=== PATIENT | male | born 1980 | race Caucasian/White ===

== ENCOUNTER 2018-01-15 03:00 | Inpatient (IN) | payer OTHER ==
[2018-01-15] MEDS: LORAZEPAM 2 MG INJ IV ×4 (04:38→18:24)
[2018-01-15] MEDS: CHLORDIAZEPOXIDE 25 MG CAP PO ×9 (04:38→23:53)
[2018-01-15 04:39] LABS: ADD MAN DIFF? NO
[2018-01-15 04:55] LABS: BASOPHIL # 0.1 10^3/ul (0.0-0.1); BASOPHILS % 0.9 % (0.0-2.0); EOSINOPHILS # 0.2 10^3/ul (0.0-0.5); EOSINOPHILS % 2.7 % (0.0-7.0); HEMATOCRIT 42.8 % (42.0-52.0); HEMOGLOBIN 14.3 g/dl (14.0-18.0); LYMPHOCYTES % 28.5 % (15.0-51.0); MEAN CORPUSCULAR HGB CONC 33.4 g/dl (32.0-37.0); MEAN CORPUSCULAR VOLUME 89.9 fl (82.0-101.0); MEAN PLATELET VOLUME 9.6 fl (7.4-10.4); MONOCYTE # 1.3 10^3/ul (0.3-0.9); NEUTROPHIL # 3.4 10^3/ul (1.6-7.5); NEUTROPHILS % 49.5 % (39.0-77.0); PLATELET COUNT 143 10^3/UL (140-415); RED BLOOD COUNT 4.76 10^6/ul (4.70-6.10); RED CELL DISTRIBUTION WIDTH 14.6 % (11.5-14.5)
[2018-01-15 04:55] LABS: WHITE BLOOD COUNT 6.9 10^3/ul (4.8-10.8)
[2018-01-15] MEDS: DIAZEPAM 5 MG/ML SYG IV (05:40)
[2018-01-15 05:41] LABS: ACETAMINOPHEN < 10.0 ug/ml (10.0-30.0); ALANINE AMINOTRANSFERASE 149 IU/L (13-69); ALBUMIN 4.6 g/dl (3.3-4.9); ALBUMIN/GLOBULIN RATIO 1.31; ALKALINE PHOSPHATASE 87 IU/L (42-121); ANION GAP 18 (8-16); ASPARTATE AMINO TRANSFERASE 168 IU/L (15-46); BILIRUBIN,INDIRECT 0.6 mg/dl (0-1.1); BILIRUBIN,TOTAL 0.6 mg/dl (0.2-1.3); BLOOD UREA NITROGEN 13 mg/dl (7-20); CALCIUM 9.6 mg/dl (8.4-10.2); CARBON DIOXIDE 27 mmol/L (21-31); CHLORIDE 101 mmol/L (97-110); ETHANOL < 10.0 mg/dl; GLUCOSE 105 mg/dl (70-220); POTASSIUM 3.6 mmol/L (3.5-5.1); SALICYLATE < 1.0 mg/dl (5.0-30.0); SODIUM 142 mmol/L (135-144); TOTAL PROTEIN 8.1 g/dl (6.1-8.1)
[2018-01-15] MEDS ORDERED: ACETAMINOPHEN 325 MG TAB PO ×2 (07:30→10:30)
[2018-01-15] MEDS ORDERED: ONDANSETRON 4 MG INJ IV ×2 (07:30→10:30)
[2018-01-15 08:23] LABS: ADD UMIC YES; UR ASCORBIC ACID NEGATIVE (NEGATIVE); UR BACTERIA FEW /HPF (NONE SEEN); UR BILIRUBIN (Dip) NEGATIVE (NEGATIVE); UR BLOOD (Dip) 1+ mg/dL (NEGATIVE); UR CLARITY CLEAR (CLEAR); UR COLOR YELLOW (YELLOW); UR GLUCOSE (Dip) NEGATIVE (NEGATIVE); UR KETONES (Dip) NEGATIVE (NEGATIVE); UR LEUKOCYTE ESTERASE (Dip) NEGATIVE Leu/ul (NEGATIVE); UR MUCUS MODERATE /HPF (NONE SEEN); UR NITRITE (Dip) NEGATIVE (NEGATIVE); UR RBC 0 /HPF (0-5); UR SPECIFIC GRAVITY (Dip) 1.025 (1.003-1.030); UR TOTAL PROTEIN (Dip) NEGATIVE (NEGATIVE); UR UROBILINOGEN (Dip) 1+ mg/dL (NEGATIVE); UR WBC 2 /HPF (0-5)
[2018-01-15 08:46] LABS: AMPHETAMINE/METHAMPHETAMINE Negative (NEGATIVE); BARBITURATES Negative (NEGATIVE); CANNABINOIDS Negative (NEGATIVE); COCAINE Negative (NEGATIVE); OPIATES Negative (NEGATIVE)
[2018-01-15 08:50] LABS: BENZODIAZEPINES Positive (NEGATIVE)
[2018-01-15] MEDS ORDERED: NACL 0.9% 3 ML SYG IV (10:30)
[2018-01-15] MEDS ORDERED: BISACODYL 10 MG SUPP PR (10:30)
[2018-01-15] MEDS ORDERED: MAGNESIUM HYDROXIDE 30ML CUP PO (10:30)
[2018-01-15] MEDS ORDERED: ZOLPIDEM 5 MG TAB PO (10:30)
[2018-01-15 10:53] LABS: PHOSPHORUS 5.3 mg/dl (2.5-4.9)
[2018-01-15] MEDS: FOLIC ACID 1 MG TAB PO (11:04)
[2018-01-15] MEDS: MULTIVITAMINS THERAPEUTIC TAB PO (11:04)
[2018-01-15] MEDS: SOD CHLORIDE 0.9% 1,000 ML IV ×2 (11:04→20:22)
[2018-01-15] MEDS: THIAMINE 100 MG TAB PO (11:05)
[2018-01-15] MEDS: HALOPERIDOL 5 MG INJ IM (18:05)
[2018-01-15] MEDS: HALOPERIDOL 5 MG INJ IV (19:45)
[2018-01-15] MEDS ORDERED: FLUOCINONIDE 0.05% 60 GM OINT TOP (21:00)
[2018-01-16] MEDS: SOD CHLORIDE 0.9% 1,000 ML IV ×2 (02:42→05:32)
[2018-01-16] MEDS: PANTOPRAZOLE (EC) 40 MG TAB PO (05:18)
[2018-01-16] MEDS: CHLORDIAZEPOXIDE 25 MG CAP PO ×4 (05:18→23:56)
[2018-01-16 08:39] LABS: ALANINE AMINOTRANSFERASE 130 IU/L (13-69); ALBUMIN 4.1 g/dl (3.3-4.9); ALBUMIN/GLOBULIN RATIO 1.36; ALKALINE PHOSPHATASE 47 IU/L (42-121); ANION GAP 19 (8-16); ASPARTATE AMINO TRANSFERASE 108 IU/L (15-46); BILIRUBIN,INDIRECT 0.8 mg/dl (0-1.1); BILIRUBIN,TOTAL 0.8 mg/dl (0.2-1.3); BLOOD UREA NITROGEN 12 mg/dl (7-20); CALCIUM 8.8 mg/dl (8.4-10.2); CARBON DIOXIDE 22 mmol/L (21-31); CHLORIDE 105 mmol/L (97-110); CREATININE 0.72 mg/dl (0.61-1.24); GLUCOSE 101 mg/dl (70-220); MAGNESIUM 1.8 mg/dl (1.7-2.5); POTASSIUM 3.1 mmol/L (3.5-5.1); SODIUM 143 mmol/L (135-144); TOTAL PROTEIN 7.1 g/dl (6.1-8.1)
[2018-01-16] MEDS ORDERED: FLUOCINONIDE 0.05% TOP (09:00)
[2018-01-16] MEDS: MULTIVITAMINS THERAPEUTIC TAB PO (09:03)
[2018-01-16] MEDS: THIAMINE 100 MG TAB PO (09:04)
[2018-01-16] MEDS: ATENOLOL 25 MG TAB PO (09:04)
[2018-01-16] MEDS: FOLIC ACID 1 MG TAB PO (09:04)
[2018-01-16] MEDS: ESCITALOPRAM 10 MG TAB PO (09:04)
[2018-01-16] MEDS: POTASSIUM CHLORIDE (SR) 20 MEQ TAB PO (09:54)
[2018-01-16] MEDS: MAGNESIUM SULFATE 2 GM/50 ML 50 ML IVPB (09:54)
[2018-01-16] MEDS: D5-NS + KCL 40 MEQ 1,000 ML IV ×2 (11:26→21:34)
[2018-01-17] MEDS: PANTOPRAZOLE (EC) 40 MG TAB PO (05:54)
[2018-01-17] MEDS: CHLORDIAZEPOXIDE 25 MG CAP PO ×4 (05:54→23:29)
[2018-01-17] MEDS: D5-NS + KCL 40 MEQ 1,000 ML IV (07:00)
[2018-01-17 07:22] LABS: ADD MAN DIFF? NO
[2018-01-17 07:28] LABS: WHITE BLOOD COUNT 9.5 10^3/ul (4.8-10.8)
[2018-01-17 07:28] LABS: BASOPHILS % 0.4 % (0.0-2.0); EOSINOPHILS # 0.1 10^3/ul (0.0-0.5); EOSINOPHILS % 1.2 % (0.0-7.0); HEMATOCRIT 38.1 % (42.0-52.0); HEMOGLOBIN 12.3 g/dl (14.0-18.0); LYMPHOCYTES # 1.3 10^3/ul (0.8-2.9); LYMPHOCYTES % 13.8 % (15.0-51.0); MEAN CORPUSCULAR HEMOGLOBIN 30.5 pg (29.0-33.0); MEAN CORPUSCULAR HGB CONC 32.3 g/dl (32.0-37.0); MEAN CORPUSCULAR VOLUME 94.5 fl (82.0-101.0); MEAN PLATELET VOLUME 9.6 fl (7.4-10.4); MONOCYTE # 1.3 10^3/ul (0.3-0.9); MONOCYTES % 13.3 % (0.0-11.0); NEUTROPHIL # 6.7 10^3/ul (1.6-7.5); NEUTROPHILS % 70.5 % (39.0-77.0); PLATELET COUNT 146 10^3/UL (140-415); RED BLOOD COUNT 4.03 10^6/ul (4.70-6.10); RED CELL DISTRIBUTION WIDTH 15.2 % (11.5-14.5)
[2018-01-17 07:45] LABS: ANION GAP 9 (8-16); BLOOD UREA NITROGEN 7 mg/dl (7-20); CALCIUM 8.8 mg/dl (8.4-10.2); CARBON DIOXIDE 25 mmol/L (21-31); CHLORIDE 109 mmol/L (97-110); CREATININE 0.69 mg/dl (0.61-1.24); GLUCOSE 125 mg/dl (70-220); POTASSIUM 3.9 mmol/L (3.5-5.1); SODIUM 139 mmol/L (135-144)
[2018-01-17 07:49] LABS: PHOSPHORUS 2.1 mg/dl (2.5-4.9)
[2018-01-17 07:49] LABS: MAGNESIUM 2.2 mg/dl (1.7-2.5)
[2018-01-17] MEDS: MULTIVITAMINS THERAPEUTIC TAB PO (08:39)
[2018-01-17] MEDS: ATENOLOL 25 MG TAB PO (08:40)
[2018-01-17] MEDS: THIAMINE 100 MG TAB PO (08:41)
[2018-01-17] MEDS: FOLIC ACID 1 MG TAB PO (08:41)
[2018-01-17] MEDS: ESCITALOPRAM 10 MG TAB PO (08:41)
[2018-01-17] MEDS: POTASSIUM PHOSPHATE 30 MM in SOD CHLORIDE 0.9% 250 ML IVPB (12:53)
[2018-01-18] MEDS: PANTOPRAZOLE (EC) 40 MG TAB PO (05:36)
[2018-01-18] MEDS: CHLORDIAZEPOXIDE 25 MG CAP PO ×2 (05:36→11:56)
[2018-01-18 07:15] LABS: ANION GAP 11 (8-16); BLOOD UREA NITROGEN 10 mg/dl (7-20); CALCIUM 9.1 mg/dl (8.4-10.2); CARBON DIOXIDE 29 mmol/L (21-31); CHLORIDE 105 mmol/L (97-110); CREATININE 0.74 mg/dl (0.61-1.24); GLUCOSE 136 mg/dl (70-220); POTASSIUM 3.7 mmol/L (3.5-5.1); SODIUM 141 mmol/L (135-144)
[2018-01-18 07:30] LABS: MAGNESIUM 2.1 mg/dl (1.7-2.5)
[2018-01-18 07:30] LABS: PHOSPHORUS 3.7 mg/dl (2.5-4.9)
[2018-01-18] MEDS: FOLIC ACID 1 MG TAB PO (08:01)
[2018-01-18] MEDS: MULTIVITAMINS THERAPEUTIC TAB PO (08:01)
[2018-01-18] MEDS: THIAMINE 100 MG TAB PO (08:01)
[2018-01-18] MEDS: DOCUSATE SODIUM 100 MG CAP PO (08:01)
[2018-01-18] MEDS: ESCITALOPRAM 10 MG TAB PO (08:01)
[2018-01-18] MEDS: ATENOLOL 25 MG TAB PO (08:01)
[2018-01-18] MEDS: POTASSIUM CHLORIDE (SR) 20 MEQ TAB PO (10:29)
== END 2018-01-18 15:15 | disposition home or self-care (01) | DRG 897 ==
LOC: TEL 01-17 23:05 → E/R 03:00 → MS4 09:05
DX: F10.231 Alcohol dependence with withdrawal delirium (principal); R44.3 Hallucinations, unspecified; Y90.0 Blood alcohol level of less than 20 mg/100 ml; I10 Essential (primary) hypertension; F32.89 Other specified depressive episodes; F32.9 Major depressive disorder, single episode, unspecified; F41.9 Anxiety disorder, unspecified; L30.9 Dermatitis, unspecified; G47.00 Insomnia, unspecified
CPT/HCPCS: 36415; 80048; 80053; 80307; 81001; 83735; 84100; 85025; 96374; 96375; 99291-25

== ENCOUNTER 2018-02-02 08:14 | Inpatient (IN) | payer OTHER ==
[2018-02-02 08:38] LABS: ADD MAN DIFF? NO
[2018-02-02 08:39] LABS: WHITE BLOOD COUNT 5.7 10^3/ul (4.8-10.8)
[2018-02-02 08:39] LABS: BASOPHIL # 0.1 10^3/ul (0.0-0.1); BASOPHILS % 1.1 % (0.0-2.0); EOSINOPHILS # 0.1 10^3/ul (0.0-0.5); EOSINOPHILS % 1.2 % (0.0-7.0); HEMATOCRIT 40.3 % (42.0-52.0); HEMOGLOBIN 13.6 g/dl (14.0-18.0); LYMPHOCYTES # 1.6 10^3/ul (0.8-2.9); LYMPHOCYTES % 28.1 % (15.0-51.0); MEAN CORPUSCULAR HEMOGLOBIN 30.5 pg (29.0-33.0); MEAN CORPUSCULAR HGB CONC 33.7 g/dl (32.0-37.0); MEAN CORPUSCULAR VOLUME 90.4 fl (82.0-101.0); MEAN PLATELET VOLUME 8.9 fl (7.4-10.4); MONOCYTE # 0.4 10^3/ul (0.3-0.9); MONOCYTES % 7.4 % (0.0-11.0); NEUTROPHIL # 3.5 10^3/ul (1.6-7.5); PLATELET COUNT 252 10^3/UL (140-415); RED BLOOD COUNT 4.46 10^6/ul (4.70-6.10)
[2018-02-02] MEDS: SOD CHLORIDE 0.9% 1,000 ML IV (08:45)
[2018-02-02 08:59] LABS: ALANINE AMINOTRANSFERASE 40 IU/L (13-69); ALBUMIN 4.1 g/dl (3.3-4.9); ALKALINE PHOSPHATASE 55 IU/L (42-121); ANION GAP 17 (8-16); ASPARTATE AMINO TRANSFERASE 56 IU/L (15-46); BILIRUBIN,INDIRECT 0.5 mg/dl (0-1.1); BILIRUBIN,TOTAL 0.5 mg/dl (0.2-1.3); BLOOD UREA NITROGEN 5 mg/dl (7-20); CALCIUM 8.8 mg/dl (8.4-10.2); CARBON DIOXIDE 24 mmol/L (21-31); CHLORIDE 102 mmol/L (97-110); CREATININE 0.76 mg/dl (0.61-1.24); GLUCOSE 102 mg/dl (70-220); POTASSIUM 4.5 mmol/L (3.5-5.1); SODIUM 138 mmol/L (135-144); TOTAL PROTEIN 7.5 g/dl (6.1-8.1)
[2018-02-02 09:20] LABS: ACETAMINOPHEN < 10.0 ug/ml (10.0-30.0); SALICYLATE < 1.0 mg/dl (5.0-30.0)
[2018-02-02 09:27] LABS: ADD UMIC NO; UR ASCORBIC ACID NEGATIVE (NEGATIVE); UR BILIRUBIN (Dip) NEGATIVE (NEGATIVE); UR BLOOD (Dip) NEGATIVE (NEGATIVE); UR CLARITY CLEAR (CLEAR); UR COLOR STRAW (YELLOW); UR GLUCOSE (Dip) NEGATIVE (NEGATIVE); UR KETONES (Dip) NEGATIVE (NEGATIVE); UR LEUKOCYTE ESTERASE (Dip) NEGATIVE Leu/ul (NEGATIVE); UR NITRITE (Dip) NEGATIVE (NEGATIVE); UR SPECIFIC GRAVITY (Dip) 1.002 (1.003-1.030); UR TOTAL PROTEIN (Dip) NEGATIVE (NEGATIVE); UR UROBILINOGEN (Dip) NEGATIVE (NEGATIVE)
[2018-02-02 09:47] LABS: AMPHETAMINE/METHAMPHETAMINE Negative (NEGATIVE); BARBITURATES Negative (NEGATIVE); BENZODIAZEPINES Positive (NEGATIVE); CANNABINOIDS Negative (NEGATIVE); COCAINE Negative (NEGATIVE); OPIATES Positive (NEGATIVE)
[2018-02-02] MEDS ORDERED: ONDANSETRON 4 MG INJ IV ×2 (10:00→10:30)
[2018-02-02] MEDS ORDERED: ACETAMINOPHEN 325 MG TAB PO (10:00)
[2018-02-02] MEDS ORDERED: NA PHOSPHATE/BIPHOS 133 ML ENEMA PR (10:30)
[2018-02-02] MEDS ORDERED: BISACODYL (EC) 5 MG TAB PO (10:30)
[2018-02-02] MEDS ORDERED: DOCUSATE SODIUM 100 MG CAP PO (10:30)
[2018-02-02] MEDS ORDERED: MAGNESIUM HYDROXIDE 30ML CUP PO (10:30)
[2018-02-02] MEDS ORDERED: NACL 0.9% 3 ML SYG IV (10:30)
[2018-02-02] MEDS: DEXTROSE 5%-0.9% NACL 1,000 ML IV ×2 (12:02→22:09)
[2018-02-02] MEDS: ATENOLOL 25 MG TAB PO (12:02)
[2018-02-02 12:08] LABS: MAGNESIUM 1.9 mg/dl (1.7-2.5)
[2018-02-02] MEDS ORDERED: LORAZEPAM 2 MG INJ IV (12:30)
[2018-02-02] MEDS: FAMOTIDINE 20 MG INJ IV (22:09)
[2018-02-03] MEDS: DEXTROSE 5%-0.9% NACL 1,000 ML IV ×3 (04:48→21:18)
[2018-02-03 07:50] LABS: ADD MAN DIFF? NO
[2018-02-03 08:01] LABS: BASOPHILS % 0.4 % (0.0-2.0); EOSINOPHILS # 0.1 10^3/ul (0.0-0.5); HEMATOCRIT 41.5 % (42.0-52.0); HEMOGLOBIN 13.5 g/dl (14.0-18.0); LYMPHOCYTES # 1.3 10^3/ul (0.8-2.9); LYMPHOCYTES % 11.2 % (15.0-51.0); MEAN CORPUSCULAR HEMOGLOBIN 29.9 pg (29.0-33.0); MEAN CORPUSCULAR HGB CONC 32.5 g/dl (32.0-37.0); MEAN CORPUSCULAR VOLUME 91.8 fl (82.0-101.0); MEAN PLATELET VOLUME 9.1 fl (7.4-10.4); MONOCYTE # 0.8 10^3/ul (0.3-0.9); MONOCYTES % 6.9 % (0.0-11.0); NEUTROPHIL # 9.1 10^3/ul (1.6-7.5); NEUTROPHILS % 80.1 % (39.0-77.0); PLATELET COUNT 217 10^3/UL (140-415); RED BLOOD COUNT 4.52 10^6/ul (4.70-6.10); RED CELL DISTRIBUTION WIDTH 15.6 % (11.5-14.5)
[2018-02-03 08:01] LABS: WHITE BLOOD COUNT 11.4 10^3/ul (4.8-10.8)
[2018-02-03 08:23] LABS: ALANINE AMINOTRANSFERASE 39 IU/L (13-69); ALBUMIN 3.8 g/dl (3.3-4.9); ALBUMIN/GLOBULIN RATIO 1.26; ALKALINE PHOSPHATASE 53 IU/L (42-121); ANION GAP 11 (8-16); ASPARTATE AMINO TRANSFERASE 38 IU/L (15-46); BILIRUBIN,INDIRECT 0.7 mg/dl (0-1.1); BILIRUBIN,TOTAL 0.7 mg/dl (0.2-1.3); BLOOD UREA NITROGEN 6 mg/dl (7-20); CALCIUM 8.6 mg/dl (8.4-10.2); CARBON DIOXIDE 31 mmol/L (21-31); CHLORIDE 104 mmol/L (97-110); GLUCOSE 138 mg/dl (70-220); MAGNESIUM 1.7 mg/dl (1.7-2.5); POTASSIUM 3.7 mmol/L (3.5-5.1); SODIUM 142 mmol/L (135-144); TOTAL PROTEIN 6.8 g/dl (6.1-8.1)
[2018-02-03] MEDS: FAMOTIDINE 20 MG INJ IV ×2 (08:34→20:42)
[2018-02-03] MEDS: ESCITALOPRAM 10 MG TAB PO (08:34)
[2018-02-03] MEDS: ATENOLOL 25 MG TAB PO (08:35)
[2018-02-03] MEDS: MULTIVITAMINS 10 ML, THIAMINE 100 MG, FOLIC ACID 1 MG in SOD CHLORIDE 0.9% 1,000 ML IVPB (11:35)
[2018-02-03 12:26] LABS: AADO2 Arterial 31.4 mmHg (7.0-24.0); Allen Test ACCEPTAB; Arterial Base Excess 3.8 mmol/L (-3.0-3); Arterial Blood Gas Oxygen Sat 98.1 mmHG (95.0-98.0); Arterial COHb 0.8 % (0.0-3.0); Arterial HCO3 28.9 mmol/L (22.0-26.0); Arterial MetHb 0.3 % (0.0-1.5); Arterial Total Hemglobin 14.1 g/dl (12.0-18.0); Arterial pCO2 45.3 mmhg (35-45); MODE NASAL CANNULA; Site Right Radial
[2018-02-04] MEDS: ACETAMINOPHEN 650 MG SUPP PR (01:40)
[2018-02-04] MEDS: PIPER-TAZO 3.375 GM IV (PMX) 100 ML IVPB ×5 (01:41→20:21)
[2018-02-04] MEDS ORDERED: VANCOMYCIN IV PER PHARMACY XX (02:00)
[2018-02-04] MEDS: VANCOMYCIN 1.75 GM in SOD CHLORIDE 0.9% 500 ML IVPB (05:13)
[2018-02-04] MEDS: DEXTROSE 5%-0.9% NACL 1,000 ML IV ×2 (05:16→05:20)
[2018-02-04] MEDS: FAMOTIDINE 20 MG INJ IV ×2 (08:01→20:21)
[2018-02-04 08:43] LABS: ADD MAN DIFF? NO
[2018-02-04 08:59] LABS: BASOPHILS % 0.3 % (0.0-2.0); EOSINOPHILS % 0.3 % (0.0-7.0); HEMATOCRIT 42.3 % (42.0-52.0); LYMPHOCYTES # 1.7 10^3/ul (0.8-2.9); LYMPHOCYTES % 16.3 % (15.0-51.0); MEAN CORPUSCULAR HEMOGLOBIN 30.4 pg (29.0-33.0); MEAN CORPUSCULAR HGB CONC 33.1 g/dl (32.0-37.0); MEAN CORPUSCULAR VOLUME 91.8 fl (82.0-101.0); MEAN PLATELET VOLUME 9.4 fl (7.4-10.4); MONOCYTE # 0.4 10^3/ul (0.3-0.9); MONOCYTES % 3.8 % (0.0-11.0); PLATELET COUNT 182 10^3/UL (140-415); POSITIVE DIFF @See below; RED BLOOD COUNT 4.61 10^6/ul (4.70-6.10)
[2018-02-04 08:59] LABS: WHITE BLOOD COUNT 10.1 10^3/ul (4.8-10.8)
[2018-02-04] MEDS: ESCITALOPRAM 10 MG TAB PO (09:00)
[2018-02-04 09:38] LABS: ANISOCYTOSIS 1+ (0-0); BAND NEUTROPHILS #M 4.4 10^3/ul (0.0-0.6); BAND NEUTROPHILS % (M) 44 % (0-4); GIANT THROMBO% (M) 1 % (0-0); LYMPHOCYTES #M 1.7 10^3/ul (0.8-2.9); LYMPHOCYTES % (M) 17 % (15-51); MICROCYTOSIS 1+ (0-0); MONOCYTE #M 0.4 10^3/ul (0.3-0.9); MONOCYTES % (M) 4 % (0-11); PLATELET ESTIMATE NORMAL; REACTIVE LYMPHOCYTES #M 1.5 10^3/ul (0.0-0.0); REACTIVE LYMPHOCYTES% (M) 15 % (0-0); SEG NEUT #M 2.6 10^3/ul (1.6-7.5); SEGMENTED NEUTROPHILS (M) % 21 % (39-77); SMUDGE%M 16 % (0-0)
[2018-02-04 10:14] LABS: ANION GAP 12 (8-16); BLOOD UREA NITROGEN 4 mg/dl (7-20); CALCIUM 8.3 mg/dl (8.4-10.2); CARBON DIOXIDE 25 mmol/L (21-31); CHLORIDE 105 mmol/L (97-110); GLUCOSE 121 mg/dl (70-220); POTASSIUM 3.3 mmol/L (3.5-5.1); SODIUM 139 mmol/L (135-144)
[2018-02-04 10:52] LABS: ADD UMIC YES; UR ASCORBIC ACID NEGATIVE (NEGATIVE); UR BACTERIA FEW /HPF (NONE SEEN); UR BILIRUBIN (Dip) NEGATIVE (NEGATIVE); UR BLOOD (Dip) NEGATIVE (NEGATIVE); UR CLARITY SLIGHTLY CLOUDY (CLEAR); UR COLOR YELLOW (YELLOW); UR GLUCOSE (Dip) NEGATIVE (NEGATIVE); UR KETONES (Dip) 1+ mg/dL (NEGATIVE); UR LEUKOCYTE ESTERASE (Dip) 1+ Leu/ul (NEGATIVE); UR MUCUS FEW /HPF (NONE SEEN); UR NITRITE (Dip) NEGATIVE (NEGATIVE); UR RBC 0 /HPF (0-5); UR SPECIFIC GRAVITY (Dip) 1.013 (1.003-1.030); UR SQUAMOUS EPITHELIAL CELL FEW /HPF (FEW); UR TOTAL PROTEIN (Dip) NEGATIVE (NEGATIVE); UR UROBILINOGEN (Dip) NEGATIVE (NEGATIVE); UR WBC 1 /HPF (0-5)
[2018-02-04] MEDS: MULTIVITAMINS 10 ML, THIAMINE 100 MG, FOLIC ACID 1 MG in SOD CHLORIDE 0.9% 1,000 ML IVPB (11:00)
[2018-02-04] MEDS ORDERED: VANCOMYCIN 1 GM 250 ML IVPB (14:00)
[2018-02-04] MEDS: D5W-0.45 NACL + KCL 40 MEQ 1,000 ML IV (14:18)
[2018-02-05] MEDS: ACETAMINOPHEN 325 MG TAB PO (02:30)
[2018-02-05] MEDS: D5W-0.45 NACL + KCL 40 MEQ 1,000 ML IV ×2 (04:59→16:10)
[2018-02-05] MEDS: PIPER-TAZO 3.375 GM IV (PMX) 100 ML IVPB ×3 (04:59→21:01)
[2018-02-05 06:54] LABS: ADD MAN DIFF? NO
[2018-02-05 07:00] LABS: BASOPHILS % 0.2 % (0.0-2.0); EOSINOPHILS # 0.1 10^3/ul (0.0-0.5); EOSINOPHILS % 0.5 % (0.0-7.0); HEMOGLOBIN 12.1 g/dl (14.0-18.0); LYMPHOCYTES % 7.5 % (15.0-51.0); MEAN CORPUSCULAR HEMOGLOBIN 29.7 pg (29.0-33.0); MEAN CORPUSCULAR HGB CONC 32.7 g/dl (32.0-37.0); MEAN CORPUSCULAR VOLUME 90.9 fl (82.0-101.0); MEAN PLATELET VOLUME 9.9 fl (7.4-10.4); MONOCYTE # 0.7 10^3/ul (0.3-0.9); MONOCYTES % 5.7 % (0.0-11.0); NEUTROPHILS % 84.7 % (39.0-77.0); PLATELET COUNT 166 10^3/UL (140-415); RED BLOOD COUNT 4.07 10^6/ul (4.70-6.10); RED CELL DISTRIBUTION WIDTH 15.1 % (11.5-14.5)
[2018-02-05 07:22] LABS: ANION GAP 11 (8-16); BLOOD UREA NITROGEN 5 mg/dl (7-20); CALCIUM 8.6 mg/dl (8.4-10.2); CARBON DIOXIDE 26 mmol/L (21-31); CHLORIDE 108 mmol/L (97-110); CREATININE 0.92 mg/dl (0.61-1.24); GLUCOSE 118 mg/dl (70-220); SODIUM 142 mmol/L (135-144)
[2018-02-05] MEDS: MULTIVITAMINS 10 ML, THIAMINE 100 MG, FOLIC ACID 1 MG in SOD CHLORIDE 0.9% 1,000 ML IVPB (08:16)
[2018-02-05] MEDS: FAMOTIDINE 20 MG INJ IV ×2 (08:16→21:01)
[2018-02-05] MEDS: ESCITALOPRAM 10 MG TAB PO (08:17)
[2018-02-05] MEDS: POTASSIUM CHLORIDE 20 MEQ POWDER FOR ORAL SOLN PO ×2 (08:30→10:03)
[2018-02-05] MEDS: POTASSIUM CHLORIDE 50 ML IVPB ×4 (12:00→18:22)
[2018-02-05] MEDS: ATENOLOL 25 MG TAB PO (21:52)
[2018-02-05] MEDS: LORAZEPAM 2 MG INJ IV (22:18)
[2018-02-06] MEDS: LORAZEPAM 2 MG INJ IV ×2 (01:24→12:16)
[2018-02-06] MEDS: ACETAMINOPHEN 325 MG TAB PO (03:23)
[2018-02-06] MEDS: PIPER-TAZO 3.375 GM IV (PMX) 100 ML IVPB ×3 (05:10→21:00)
[2018-02-06] MEDS: D5W-0.45 NACL + KCL 40 MEQ 1,000 ML IV (05:14)
[2018-02-06] MEDS: ATENOLOL 25 MG TAB PO (08:20)
[2018-02-06] MEDS: MULTIVITAMINS 10 ML, THIAMINE 100 MG, FOLIC ACID 1 MG in SOD CHLORIDE 0.9% 1,000 ML IVPB (08:20)
[2018-02-06] MEDS: ESCITALOPRAM 10 MG TAB PO (08:20)
[2018-02-06] MEDS: FAMOTIDINE 20 MG INJ IV ×2 (08:20→21:00)
[2018-02-06 09:10] LABS: ADD MAN DIFF? NO
[2018-02-06 09:14] LABS: WHITE BLOOD COUNT 12.2 10^3/ul (4.8-10.8)
[2018-02-06 09:14] LABS: BASOPHILS % 0.2 % (0.0-2.0); EOSINOPHILS # 0.1 10^3/ul (0.0-0.5); EOSINOPHILS % 1.1 % (0.0-7.0); HEMATOCRIT 39.1 % (42.0-52.0); LYMPHOCYTES # 1.7 10^3/ul (0.8-2.9); LYMPHOCYTES % 13.7 % (15.0-51.0); MEAN CORPUSCULAR HEMOGLOBIN 30.7 pg (29.0-33.0); MEAN CORPUSCULAR HGB CONC 33.2 g/dl (32.0-37.0); MEAN CORPUSCULAR VOLUME 92.2 fl (82.0-101.0); MEAN PLATELET VOLUME 9.4 fl (7.4-10.4); MONOCYTES % 8.3 % (0.0-11.0); NEUTROPHIL # 9.1 10^3/ul (1.6-7.5); NEUTROPHILS % 74.3 % (39.0-77.0); PLATELET COUNT 180 10^3/UL (140-415); RED BLOOD COUNT 4.24 10^6/ul (4.70-6.10); RED CELL DISTRIBUTION WIDTH 14.6 % (11.5-14.5)
[2018-02-06 09:38] LABS: ANION GAP 14 (8-16); BLOOD UREA NITROGEN 6 mg/dl (7-20); CALCIUM 8.7 mg/dl (8.4-10.2); CARBON DIOXIDE 23 mmol/L (21-31); CHLORIDE 108 mmol/L (97-110); CREATININE 0.87 mg/dl (0.61-1.24); GLUCOSE 267 mg/dl (70-220); POTASSIUM 5.5 mmol/L (3.5-5.1); SODIUM 139 mmol/L (135-144)
[2018-02-06] MEDS: HALOPERIDOL 5 MG INJ IV (12:24)
[2018-02-06] MEDS: DEXTROSE 5%-0.45% NACL 1,000 ML IV (14:30)
[2018-02-06] MEDS: CHLORDIAZEPOXIDE 25 MG CAP PO ×3 (15:31→21:00)
[2018-02-06] MEDS ORDERED: HALOPERIDOL 5 MG INJ IV (18:30)
[2018-02-06] MEDS: HALOPERIDOL 5 MG INJ IM (18:32)
[2018-02-07] MEDS: DEXTROSE 5%-0.45% NACL 1,000 ML IV ×2 (01:12→17:10)
[2018-02-07] MEDS: PIPER-TAZO 3.375 GM IV (PMX) 100 ML IVPB ×3 (05:01→20:42)
[2018-02-07] MEDS: LORAZEPAM 2 MG INJ IV (08:12)
[2018-02-07] MEDS: ESCITALOPRAM 10 MG TAB PO (09:00)
[2018-02-07] MEDS: ATENOLOL 25 MG TAB PO (09:00)
[2018-02-07] MEDS: CHLORDIAZEPOXIDE 25 MG CAP PO ×4 (09:00→20:36)
[2018-02-07 09:10] LABS: ADD MAN DIFF? NO
[2018-02-07 09:17] LABS: WHITE BLOOD COUNT 9.7 10^3/ul (4.8-10.8)
[2018-02-07 09:17] LABS: ABNORMAL IP MESSAGE 1; BASOPHILS % 0.3 % (0.0-2.0); EOSINOPHILS # 0.2 10^3/ul (0.0-0.5); HEMATOCRIT 35.7 % (42.0-52.0); HEMOGLOBIN 12.1 g/dl (14.0-18.0); LYMPHOCYTES # 1.5 10^3/ul (0.8-2.9); MEAN CORPUSCULAR HEMOGLOBIN 30.5 pg (29.0-33.0); MEAN CORPUSCULAR HGB CONC 33.9 g/dl (32.0-37.0); MEAN CORPUSCULAR VOLUME 89.9 fl (82.0-101.0); MEAN PLATELET VOLUME 8.9 fl (7.4-10.4); MONOCYTE # 1.6 10^3/ul (0.3-0.9); MONOCYTES % 16.4 % (0.0-11.0); NEUTROPHIL # 6.4 10^3/ul (1.6-7.5); PLATELET COUNT 149 10^3/UL (140-415); POSITIVE DIFF @See below; RED BLOOD COUNT 3.97 10^6/ul (4.70-6.10)
[2018-02-07 09:35] LABS: ANION GAP 14 (8-16); BLOOD UREA NITROGEN 7 mg/dl (7-20); CALCIUM 8.9 mg/dl (8.4-10.2); CARBON DIOXIDE 24 mmol/L (21-31); CHLORIDE 106 mmol/L (97-110); CREATININE 0.79 mg/dl (0.61-1.24); GLUCOSE 116 mg/dl (70-220); POTASSIUM 3.4 mmol/L (3.5-5.1); SODIUM 141 mmol/L (135-144)
[2018-02-07] MEDS: FAMOTIDINE 20 MG INJ IV ×2 (11:17→20:36)
[2018-02-07] MEDS: MULTIVITAMINS 10 ML, THIAMINE 100 MG, FOLIC ACID 1 MG in SOD CHLORIDE 0.9% 1,000 ML IVPB (17:07)
[2018-02-08] MEDS: DEXTROSE 5%-0.45% NACL 1,000 ML IV ×2 (02:39→19:11)
[2018-02-08] MEDS: PIPER-TAZO 3.375 GM IV (PMX) 100 ML IVPB ×3 (05:36→21:56)
[2018-02-08 07:15] LABS: ANION GAP 14 (8-16); BLOOD UREA NITROGEN 9 mg/dl (7-20); CALCIUM 8.7 mg/dl (8.4-10.2); CARBON DIOXIDE 27 mmol/L (21-31); CHLORIDE 104 mmol/L (97-110); CREATININE 0.75 mg/dl (0.61-1.24); GLUCOSE 134 mg/dl (70-220); POTASSIUM 3.4 mmol/L (3.5-5.1); SODIUM 142 mmol/L (135-144)
[2018-02-08] MEDS: ATENOLOL 25 MG TAB PO (09:00)
[2018-02-08] MEDS: CHLORDIAZEPOXIDE 25 MG CAP PO (09:00)
[2018-02-08] MEDS: ESCITALOPRAM 10 MG TAB PO (09:00)
[2018-02-08] MEDS: FAMOTIDINE 20 MG INJ IV ×2 (09:09→20:36)
[2018-02-08] MEDS: MULTIVITAMINS 10 ML, THIAMINE 100 MG, FOLIC ACID 1 MG in SOD CHLORIDE 0.9% 1,000 ML IVPB (09:10)
[2018-02-08] MEDS: ACETAMINOPHEN 325 MG TAB PO (20:40)
[2018-02-09] MEDS: PIPER-TAZO 3.375 GM IV (PMX) 100 ML IVPB ×3 (06:11→21:10)
[2018-02-09 08:47] LABS: ANION GAP 15 (8-16); BLOOD UREA NITROGEN 7 mg/dl (7-20); CALCIUM 9.1 mg/dl (8.4-10.2); CARBON DIOXIDE 25 mmol/L (21-31); CHLORIDE 104 mmol/L (97-110); CREATININE 0.73 mg/dl (0.61-1.24); GLUCOSE 104 mg/dl (70-220); POTASSIUM 3.1 mmol/L (3.5-5.1); SODIUM 141 mmol/L (135-144)
[2018-02-09] MEDS: ESCITALOPRAM 10 MG TAB PO (09:29)
[2018-02-09] MEDS: FAMOTIDINE 20 MG INJ IV ×2 (09:30→21:10)
[2018-02-09] MEDS: ATENOLOL 25 MG TAB PO (09:30)
[2018-02-09] MEDS: MULTIVITAMINS 10 ML, THIAMINE 100 MG, FOLIC ACID 1 MG in SOD CHLORIDE 0.9% 1,000 ML IVPB (09:31)
[2018-02-09] MEDS: DEXTROSE 5%-0.45% NACL 1,000 ML IV (09:32)
[2018-02-09] MEDS: POTASSIUM CHLORIDE (SR) 20 MEQ TAB PO (13:00)
[2018-02-09] MEDS: CHLORDIAZEPOXIDE 25 MG CAP PO ×2 (13:52→21:10)
[2018-02-10] MEDS: PIPER-TAZO 3.375 GM IV (PMX) 100 ML IVPB ×3 (05:56→21:11)
[2018-02-10] MEDS: THIAMINE 100 MG TAB PO (09:00)
[2018-02-10] MEDS: FAMOTIDINE 20 MG INJ IV ×2 (09:00→21:11)
[2018-02-10] MEDS: FOLIC ACID 1 MG TAB PO (09:00)
[2018-02-10] MEDS: MULTIVITAMINS THERAPEUTIC TAB PO (09:01)
[2018-02-10] MEDS: ESCITALOPRAM 10 MG TAB PO (09:01)
[2018-02-10] MEDS: ATENOLOL 25 MG TAB PO (09:05)
[2018-02-10] MEDS: BUSPIRONE 5 MG TAB PO (21:11)
[2018-02-11] MEDS: PIPER-TAZO 3.375 GM IV (PMX) 100 ML IVPB (05:06)
[2018-02-11] MEDS: BUSPIRONE 5 MG TAB PO ×2 (08:43→20:39)
[2018-02-11] MEDS: FOLIC ACID 1 MG TAB PO (08:43)
[2018-02-11] MEDS: ESCITALOPRAM 10 MG TAB PO (08:43)
[2018-02-11] MEDS: ATENOLOL 25 MG TAB PO (08:43)
[2018-02-11] MEDS: THIAMINE 100 MG TAB PO (08:43)
[2018-02-11] MEDS: MULTIVITAMINS THERAPEUTIC TAB PO (08:43)
[2018-02-11] MEDS: FAMOTIDINE 20 MG INJ IV ×2 (08:44→20:38)
[2018-02-11 09:10] LABS: ANION GAP 11 (8-16); BLOOD UREA NITROGEN 9 mg/dl (7-20); CARBON DIOXIDE 29 mmol/L (21-31); CHLORIDE 105 mmol/L (97-110); CREATININE 0.87 mg/dl (0.61-1.24); GLUCOSE 114 mg/dl (70-220); POTASSIUM 3.9 mmol/L (3.5-5.1); SODIUM 141 mmol/L (135-144)
[2018-02-11 10:17] LABS: MAGNESIUM 2.1 mg/dl (1.7-2.5)
[2018-02-11 10:17] LABS: PHOSPHORUS 3.8 mg/dl (2.5-4.9)
[2018-02-11] MEDS: AMOXICILLIN/CLAV 875 MG TAB PO (20:39)
[2018-02-12] MEDS: ESCITALOPRAM 10 MG TAB PO (08:55)
[2018-02-12] MEDS: FOLIC ACID 1 MG TAB PO (08:55)
[2018-02-12] MEDS: MULTIVITAMINS THERAPEUTIC TAB PO (08:55)
[2018-02-12] MEDS: AMOXICILLIN/CLAV 875 MG TAB PO (08:56)
[2018-02-12] MEDS: BUSPIRONE 5 MG TAB PO (08:57)
[2018-02-12] MEDS: ATENOLOL 25 MG TAB PO (08:58)
[2018-02-12] MEDS: FAMOTIDINE 20 MG INJ IV (08:58)
[2018-02-12] MEDS: THIAMINE 100 MG TAB PO (08:59)
== END 2018-02-12 17:15 | DRG 917 ==
LOC: 2NE 02-07 01:25 → E/R 08:14 → TEL 02-04 21:40 → 5EC 02-07 17:40 → TEL 09:43
DX: T42.4X2A Poisoning by benzodiazepines, intentional self-harm, initial encounter (principal); G92 Toxic encephalopathy; J69.0 Pneumonitis due to inhalation of food and vomit; T43.012A Poisoning by tricyclic antidepressants, intentional self-harm, initial encounter; T40.2X2A Poisoning by other opioids, intentional self-harm, initial encounter; I10 Essential (primary) hypertension; F32.9 Major depressive disorder, single episode, unspecified; Z72.0 Tobacco use; T51.0X2A Toxic effect of ethanol, intentional self-harm, initial encounter; Z91.19 Patient's noncompliance with other medical treatment and regimen; L30.9 Dermatitis, unspecified
CPT/HCPCS: 36415; 36600; 71045; 71046; 80048; 80053; 80307; 81001; 81003; 82803; 82962; 83735; 84100; 85025; 87040; 87086; 92526; 92610; 93005; 99285-25; G0378